=== PATIENT | male | born 1970 | race Caucasian/White ===

== ENCOUNTER 2018-07-15 18:18 | Emergency (ER) | payer BC ==
[2018-07-15] MEDS ORDERED: FENTANYL CITR 100 MCG/2 ML ONE (19:06)
[2018-07-15] MEDS ORDERED: ONDANSETRON 4 MG/2 ML VIAL ONE (19:06)
[2018-07-15 19:45] LABS: Absolute Lymphocytes (CBC) 2.4 K/uL (0.7-4.9); Absolute Monocytes 0.9 K/uL (0.1-1.3); Absolute Neutrophil 4.6 K/uL (1.8-8.0); Basophils % 0.8 % (0-1.3); Eosinophils % 2.3 % (0-4.4); Hematocrit 42.8 % (39.6-49.0); Lymphocytes % 29.4 % (15.3-44.8); MPV 7.6 fL (7.6-11.3); Monocytes % 10.6 % (3.3-12.3); RBC Red Blood Cell Count 4.49 M/uL (4.33-5.43)
[2018-07-15 19:54] LABS: Potassium 3.7 mmol/L (3.5-5.1)
[2018-07-15] MEDS ORDERED: NA CHLORIDE 0.9% 1,000 ML ONE (20:14)
--- NOTE | 2018-07-15 20:27 | RAD REPORT ---
EXAM DESCRIPTION: CT - Neck Angio - 07/15/2018 8:13 pm CLINICAL HISTORY: Left-sided neck pain, left-sided neck trauma TECHNIQUE: During dynamic enhancement using nonionic IV contrast, axial 2 mm thick images of the nec k were obtained. Sagittal and axial reconstruction images were generated and reviewed. All CT scans are performed using dose optimization technique as appropriate and may include automated exposure control or mA/KV adjustment according to patient size. FINDINGS: No aneurysm or vascular malformation identified. No carotid or vertebral dissection. No aortic arch or great vessel origin abnormality seen. Vertebral artery origins unremarkable as well . No stenosis, vasculitis or other significant carotid artery finding. No focal abnormality of either vertebral artery. Basilar artery is normal. No hematoma, significant contusion or mass in the neck soft tissues. Parotid glands, submandibular gl ands and skeletal musculature show no suspicious findings. No thyroid gland abnormality. No lymphaden opathy. IMPRESSION: Negative CT angio neck examination. No hematoma, mass or suspicious soft tissue finding.
--- NOTE | 2018-07-15 20:45 | EDPHYS ---
Physician Documentation [facility] Name: Reji Simons Age: 48 yrs Sex: Male : 1970 Arrival Date: 07/15/2018 Time: 18:22 Bed 6 Private MD: Philip Rolle ED Physician Gary Lambert HPI: 07/15 19:55 This 48 yrs old Male presents to ER via Ambulatory with complaints of Jaw jr8 Injury. 19:55 The patient or guardian complains of pain. The symptoms are located on the neck. Onset: jr8 The symptoms/episode began/occurred gradually, 4 day(s) ago. Context: The problem was sustained at home. Associated signs and symptoms: The patient has no apparent associated signs or symptoms. The pain does not radiate. Modifying factors: The symptoms are alleviated by nothing. the symptoms are aggravated by movement, pressure. Severity of symptoms: At their worst the symptoms were moderate, in the emergency department the symptoms are unchanged. The patient has not experienced similar symptoms in the past. The patient has not recently seen a physician. Patient stated that he was moving a metal bed and accidently hit himself in left jaw. Patient stated that about 2 days after started to have swelling to anterior neck line near jaw. Historical: - Allergies: 18:26 No Known Allergies; aj1 - Home Meds: 18:26 None [Active]; aj1 - PMHx: 18:26 None; aj1 - PSHx: 18:26 Cholecystectomy; aj1 - Immunization history:: Adult Immunizations up to date. - Social history:: Smoking status: Patient uses tobacco products, smokes one-half pack cigarettes per day. - Ebola Screening: : Patient denies travel to an Ebola-affected area in the 21 days before illness onset. ROS: 19:55 Eyes: Negative for injury, pain, redness, and discharge, ENT: Negative for injury, jr8 pain, and discharge, Cardiovascular: Negative for chest pain, palpitations, and edema, Respiratory: Negative for shortness of breath, cough, wheezing, and pleuritic chest pain, Abdomen/GI: Negative for abdominal pain, nausea, vomiting, diarrhea, and constipation, Back: Negative for injury and pain, MS/Extremity: Negative for injury and deformity, Skin: Negative for injury, rash, and discoloration, Neuro: Negative for headache, weakness, numbness, tingling, and seizure. 19:55 Neck: Positive for pain with movement, pain at rest, tenderness, of the neck. Exam: 20:41 Head/Face: Normocephalic, atraumatic. Eyes: Pupils equal round and reactive to light, jr8 extra-ocular motions intact. Lids and lashes normal. Conjunctiva and sclera are non-icteric and not injected. Cornea within normal limits. Periorbital areas with no swelling, redness, or edema. ENT: Nares patent. No nasal discharge, no septal abnormalities noted. Tympanic membranes are normal and external auditory canals are clear. Oropharynx with no redness, swelling, or masses, exudates, or evidence of obstruction, uvula midline. Mucous membranes moist. Cardiovascular: Regular rate and rhythm with a normal S1 and S2. No gallops, murmurs, or rubs. Normal PMI, no JVD. No pulse deficits. Respiratory: Lungs have equal breath sounds bilaterally, clear to auscultation and percussion. No rales, rhonchi or wheezes noted. No increased work of breathing, no retractions or nasal flaring. Abdomen/GI: Soft, non-tender, with normal bowel sounds. No distension or tympany. No guarding or rebound. No evidence of tenderness throughout. Back: No spinal tenderness. No costovertebral tenderness. Full range of motion. Skin: Warm, dry with normal turgor. Normal color with no rashes, no lesions, and no evidence of cellulitis. MS/ Extremity: Pulses equal, no cyanosis. Neurovascular intact. Full, normal range of motion. Neuro: Awake and alert, GCS 15, oriented to person, place, time, and situation. Cranial nerves II-XII grossly intact. Motor strength 5/5 in all extremities. Sensory grossly intact. Cerebellar exam normal. Normal gait. 20:41 Neck: External neck: swelling, that is mild, of the left anterior aspect of neck, tenderness, that is moderate, of the left anterior aspect of neck, C-spine: appears grossly normal, Thyroid: appears normal, Trachea: is midline with no obvious abnormalities, ROM/movement: is normal, is supple, Lymph nodes: no appreciated lymphadenopathy. Vital Signs: 18:26 BP 124 / 83; Pulse 70; Resp 18; Temp 98.2; Pulse Ox 96% on R/A; Weight 83.91 kg (R); aj1 Height 5 ft. 9 in. (175.26 cm) (R); Pain 8/10; 19:20 BP 134 / 89; Pulse 60; Resp 17 S; Temp 97.9(O); Pulse Ox 96% on R/A; cc3 20:20 BP 132 / 87; Pulse 59; Resp 16 S; Temp 98.1(O); Pulse Ox 95% on R/A; cc3 21:06 BP 134 / 84; Pulse 61; Resp 16 S; Temp 98.1(O); Pulse Ox 96% on R/A; cc3 18:26 Body Mass Index 27.32 (83.91 kg, 175.26 cm) aj1 MDM: 18:35 Patient medically screened. jr8 20:41 Data reviewed: vital signs, nurses notes, lab test result(s), radiologic studies, CT jr8 scan. Data interpreted: Pulse oximetry: on room air is 96 %. Interpretation: normal. Counseling: I had a detailed discussion with the patient and/or guardian regarding: the historical points, exam findings, and any diagnostic results supporting the discharge/admit diagnosis, lab results, radiology results, the need for outpatient follow up, a family practitioner, to return to the emergency department if symptoms worsen or persist or if there are any questions or concerns that arise at home. ED course: No CT finding to suggest immediate vascular injury. No sign to suggest abscess or cellulitis. Based on physical exam and CT most likely hematoma. Will have him f/u in next couple of days. To observe it for now and will give pain medicine. To utilize ice to area. If worse to come back. Patient and good with this plan . 07/15 18:43 Order name: CBC with Diff; Complete Time: 19:54 jr8 07/15 18:43 Order name: Basic Metabolic Panel; Complete Time: 19:54 jr8 07/15 18:43 Order name: CT Neck Angio; Complete Time: 20:31 jr8 07/15 18:43 Order name: IV; Complete Time: 19:01 jr8 Administered Medications: 18:53 Drug: Zofran 4 mg Route: IVP; Site: right antecubital; tw2 19:20 Follow up: Response: No adverse reaction; Nausea is decreased cc3 18:55 Drug: fentaNYL (PF) 50 mcg Route: IVP; Site: right antecubital; tw2 19:20 Follow up: Response: No adverse reaction; Pain is decreased cc3 20:00 Drug: NS 0.9% 1000 ml Route: IV; Rate: 1000 ml; Site: right antecubital; cc3 21:00 Follow up: Response: No adverse reaction; IV Status: Completed infusion; IV Intake: cc3 1000ml 20:52 Drug: morphine 4 mg Route: IVP; Site: right antecubital; cc3 21:15 Follow up: Response: No adverse reaction; Pain is decreased cc3 Disposition: 07/15/18 20:44 Discharged to Home. Impression: Hematoma neck . - Condition is Stable. - Discharge Instructions: Hematoma. - Prescriptions for Tylenol- Codeine #3 300-30 mg Oral Tablet - take 2 tablets by ORAL route every 6 hours As needed; 20 tablet. - Medication Reconciliation Form, Thank You Letter, Antibiotic Education, Prescription Opioid Use form. - Follow up: Philip Rolle MD; When: 2 - 3 days; Reason: Recheck today's complaints, Continuance of care, Re-evaluation by your physician. - Problem is new. - Symptoms have improved. Signatures: Dispatcher [employer] EDMS Julianna Sotelo RN RN aj1 David Dunaway PA PA jr8 Magi Andrews RN RN tw2 Lorena Radford cc3 Corrections: (The following items were deleted from the chart) 21:17 20:44 07/15/2018 20:44 Discharged to Home. Impression: Hematoma neck . Condition is cc3 Stable. Forms are Medication Reconciliation Form, Thank You Letter, Antibiotic Education, Prescription Opioid Use. Follow up: Philip Rolle; When: 2 - 3 days; Reason: Recheck today's complaints, Continuance of care, Re-evaluation by your physician. Problem is new. Symptoms have improved. jr8
--- NOTE | 2018-07-15 20:45 | ER ---
Nurse's Notes [facility] Name: Reji Simons Age: 48 yrs Sex: Male : 1970 Arrival Date: 07/15/2018 Time: 18:22 Bed 6 Private MD: Philip Rolle Diagnosis: Hematoma neck Presentation: 07/15 18:25 Presenting complaint: Patient states: "Saturday I was lifting a metal bed and it spun aj1 on me and hit me in the jaw bone and now its all swollen and hurting" reports pain to left jaw. Transition of care: patient was not received from another setting of care. Onset of symptoms was June 2018. Risk Assessment: Do you want to hurt yourself or someone else? Patient reports no desire to harm self or others. Initial Sepsis Screen: Does the patient meet any 2 criteria? No. Patient's initial sepsis screen is negative. Does the patient have a suspected source of infection? No. Patient's initial sepsis screen is negative. Care prior to arrival: None. 18:25 Method Of Arrival: Ambulatory aj1 18:25 Acuity: KARYNA 3 aa5 Triage Assessment: 18:26 General: Appears in no apparent distress. comfortable, Behavior is calm, cooperative, aj1 appropriate for age. Pain: Complains of pain in left jaw Pain currently is 8 out of 10 on a pain scale. Neuro: Level of Consciousness is awake, alert, obeys commands, Oriented to person, place, time, situation. Cardiovascular: Patient's skin is warm and dry. Respiratory: Airway is patent Respiratory effort is even, unlabored, Respiratory pattern is regular, symmetrical. Historical: - Allergies: 18:26 No Known Allergies; aj1 - Home Meds: 18:26 None [Active]; aj1 - PMHx: 18:26 None; aj1 - PSHx: 18:26 Cholecystectomy; aj1 - Immunization history:: Adult Immunizations up to date. - Social history:: Smoking status: Patient uses tobacco products, smokes one-half pack cigarettes per day. - Ebola Screening: : Patient denies travel to an Ebola-affected area in the 21 days before illness onset. Screenin:39 Abuse screen: Denies threats or abuse. Denies injuries from another. Nutritional aj1 screening: No deficits noted. Tuberculosis screening: No symptoms or risk factors identified. 18:50 Fall Risk None identified. tw2 Assessment: 18:39 General: Appears in no apparent distress. comfortable, Behavior is calm, cooperative, aj1 appropriate for age. Pain: Complains of pain in left jaw Pain does not radiate. Pain currently is 8 out of 10 on a pain scale. Neuro: Level of Consciousness is awake, alert, obeys commands, Oriented to person, place, time, situation. Cardiovascular: Patient's skin is warm and dry. Respiratory: Airway is patent Respiratory effort is even, unlabored, Respiratory pattern is regular, symmetrical. GI: No signs and/or symptoms were reported involving the gastrointestinal system. : No signs and/or symptoms were reported regarding the genitourinary system. EENT: No signs and/or symptoms were reported regarding the EENT system. Derm: No signs and/or symptoms reported regarding the dermatologic system. Skin is pink, warm \\T\\ dry. normal. Musculoskeletal: No signs and/or symptoms reported regarding the musculoskeletal system. Circulation, motion, and sensation intact. 19:15 Reassessment: Patient appears in no apparent distress at this time. Patient and/or cc3 family updated on plan of care and expected duration. Pain level reassessed. Patient is alert, oriented x 3, equal unlabored respirations, skin warm/dry/pink. Received this male patient from morning shift RN Mark as a case of jaw injury. With IV cannula gauge 20 at the right ACV saline locked. Patient denies pain at this time. 19:35 Reassessment: Blood works recollected by medical instrument technician Gamal. cc3 20:20 Reassessment: Patient appears in no apparent distress at this time. Patient and/or cc3 family updated on plan of care and expected duration. Pain level reassessed. Patient is alert, oriented x 3, equal unlabored respirations, skin warm/dry/pink. Patient came back from CT scan department, awaiting result. 21:15 Reassessment: Patient appears in no apparent distress at this time. Patient and/or cc3 family updated on plan of care and expected duration. Pain level reassessed. Patient is alert, oriented x 3, equal unlabored respirations, skin warm/dry/pink. RENE Dunaway discharged the patient home with prescription given. IV cannula removed and patient left ER vitally stable and ambulatory with his . Patient denies pain at this time. Patient states feeling better. Patient states symptoms have improved. Vital Signs: 18:26 BP 124 / 83; Pulse 70; Resp 18; Temp 98.2; Pulse Ox 96% on R/A; Weight 83.91 kg (R); aj1 Height 5 ft. 9 in. (175.26 cm) (R); Pain 8/10; 19:20 BP 134 / 89; Pulse 60; Resp 17 S; Temp 97.9(O); Pulse Ox 96% on R/A; cc3 20:20 BP 132 / 87; Pulse 59; Resp 16 S; Temp 98.1(O); Pulse Ox 95% on R/A; cc3 21:06 BP 134 / 84; Pulse 61; Resp 16 S; Temp 98.1(O); Pulse Ox 96% on R/A; cc3 18:26 Body Mass Index 27.32 (83.91 kg, 175.26 cm) aj1 ED Course: 18:22 Patient arrived in ED. mr 18:22 Philip Rolle MD is Private Physician. mr 18:25 Triage completed. aj1 18:26 Arm band placed on Patient placed in an exam room. aj1 18:33 David Dunaway PA is PHCP. jr8 18:33 Gary Lambert MD is Attending Physician. jr8 18:38 Julianna Sotelo, MARIELENA is Primary Nurse. aj1 18:39 Patient has correct armband on for positive identification. Bed in low position. Call aj1 light in reach. Side rails up X 1. 18:39 No provider procedures requiring assistance completed. aj1 18:40 Inserted saline lock: 20 gauge in right antecubital area, using aseptic technique. sg Blood collected. 18:44 Radiology exam delayed due to lab results not completed at this time. (BUN/Creatinine). vm2 18:55 Initial lab(s) drawn, by me, sent to lab. First set of blood cultures drawn by me and sg held at this time. 20:13 CT Neck Angio In Process Unspecified. EDMS 20:44 Philip Rolle MD is Referral Physician. jr8 21:15 IV discontinued, intact, bleeding controlled, No redness/swelling at site. Pressure cc3 dressing applied. Administered Medications: 18:53 Drug: Zofran 4 mg Route: IVP; Site: right antecubital; tw2 19:20 Follow up: Response: No adverse reaction; Nausea is decreased cc3 18:55 Drug: fentaNYL (PF) 50 mcg Route: IVP; Site: right antecubital; tw2 19:20 Follow up: Response: No adverse reaction; Pain is decreased cc3 20:00 Drug: NS 0.9% 1000 ml Route: IV; Rate: 1000 ml; Site: right antecubital; cc3 21:00 Follow up: Response: No adverse reaction; IV Status: Completed infusion; IV Intake: cc3 1000ml 20:52 Drug: morphine 4 mg Route: IVP; Site: right antecubital; cc3 21:15 Follow up: Response: No adverse reaction; Pain is decreased cc3 Intake: 21:00 IV: 1000ml; Total: 1000ml. cc3 Outcome: 20:44 Discharge ordered by . jrSharon 21:15 Discharged to home ambulatory, with family. cc3 21:15 Condition: stable cc3 21:15 Discharge instructions given to patient, family, Instructed on discharge instructions, follow up and referral plans. medication usage, Demonstrated understanding of instructions, follow-up care, medications, Prescriptions given X 1. 21:17 Patient left the ED. cc3 Signatures: Dispatcher [employer] EDMS Julianna Sotelo RN RN noe1 Mark Tolentino RN Pili Puckett Lio, Blessing RN RN aa5 David Dunaway PA PA jr8 Wise, Tara, RN RN tw2 Ofelia Soliman Charlene cc3 Corrections: (The following items were deleted from the chart) 18:49 18:25 Acuity: KARYNA 4 aj1 aa5
[2018-07-15] MEDS ORDERED: MORPHINE 4 MG/ML SYR ONE (21:07)
[2018-07-15 21:50] VITALS: O2SAT 96
[2018-07-15 21:53] VITALS: BP 134/84; TEMP 98.1
== END 2018-07-15 21:17 | disposition home or self-care (01) ==
LOC: ER 18:18
DX: S10.93XA Contusion of unspecified part of neck, initial encounter (principal); W20.8XXA Other cause of strike by thrown, projected or falling object, initial encounter; Y93.89 Activity, other specified; Y92.9 Unspecified place or not applicable; F17.210 Nicotine dependence, cigarettes, uncomplicated
CPT/HCPCS: 36415; 70498; 80048; 85025; 96361; 96374; 96375; 99284; J2405; J3010; J7030; Q9967

== ENCOUNTER → 2023-05-12 | Emergency (ER) | payer SELFPAY ==
[~2023-05-12] MED LIST: FAMOTIDINE 20 MG/2 ML VIAL IV ONE; KETOROLAC 30 MG/ML INJ ONE; MORPHINE 4 MG/ML SYR ONE; NA CHLORIDE 0.9% 1,000 ML ONE; ONDANSETRON 4 MG/2 ML VIAL ONE
[2023-05-12 06:49] LABS: Specific Gravity 1.029 (1.005-1.030); Sqamous Epithelial <5 /HPF (None Seen); Urine Bacteria <20 /HPF (<20); Urine Bilirubin NEGATIVE (Negative); Urine Blood Negative (Negative); Urine Clarity Clear (Clear); Urine Color Yellow (Yellow); Urine Culture Reflex Order NOT NEEDED; Urine Glucose NEGATIVE (Negative); Urine Ketones NEGATIVE (Negative); Urine Microscopic Reflex YN ORDER UMIC; Urine Mucus Slight /HPF (None Seen); Urine Nitrite NEGATIVE (Negative); Urine Protein 1+ (Negative); Urine Urobilinogen Normal (Normal); Urine WBC <5 /HPF (<5); Urine pH 5.5 (5.0-7.0)
[2023-05-12 07:14] LABS: Absolute Lymphocytes (CBC) 1.4 K/uL (0.7-4.9); Absolute Monocytes 0.7 K/uL (0.1-1.3); Absolute Neutrophil 3.4 K/uL (1.8-8.0); Basophils % 0.7 % (0-1.3); Eosinophils % 0.8 % (0-4.4); Hematocrit 48.2 % (39.6-49.0); Hemoglobin 16.6 g/dL (13.6-17.9); Lymphocytes % 25.5 % (15.3-44.8); MCH 32.5 pg (27.0-35.0); MCHC 34.5 g/dL (32.0-36.0); MCV 94.2 fL (80-100); MPV 7.5 fL (7.6-11.3); Monocytes % 12.5 % (3.3-12.3); Neutrophils % 60.5 % (41.7-73.7); Nucleated Red Blood Cells % 0.2 % (0-0); Platelets 192 thou/uL (152-406); RBC Red Blood Cell Count 5.12 M/uL (4.33-5.43); Red Cell Distribution Width 13.5 % (12.1-15.2)
[2023-05-12 08:52] LABS: Albumin 2.8 g/dL (3.4-5.0); Albumin/Globulin Ratio 0.9 (1.1-1.8); Bilirubin Total 0.3 mg/dL (0.2-1.0); Protein, Total 5.8 g/dL (6.4-8.2)
--- NOTE | 2023-05-12 09:45 | RAD REPORT ---
EXAM DESCRIPTION: CT - Abdomen Pelvis W Contrast - 05/12/2023 8:47 am CLINICAL HISTORY: ABD PAIN COMPARISON: CT ABD PELVIS W CONTRAST dated 09/02/2014; CT ABD PELVIS W CONTRAST dated 07/18/2014; CT AB D PELVIS W CONTRAST dated 06/21/2014; CT ABD PELVIS W CONTRAST dated 05/27/2014 TECHNIQUE: Thin cut axial CT imaging of the abdomen and pelvis was performed following intravenous a dministration of 100 mL Isovue 300. Multiplanar reformats were generated and reviewed. All CT scans are performed using dose optimization technique as appropriate and may include automated exposure control or mA/KV adjustment according to patient size. FINDINGS: Confluent nodules in the left lower lobe extending to the pleura largest measuring 9 mm. M ore superiorly, calcified granulomas are seen in the subpleural lung. The liver, spleen, adrenal glands, and pancreas show no suspicious findings. Gallbladder and biliary tree are also without suspicious finding. Symmetric renal function is seen with no hydronephrosis or suspicious renal mass. No dilated bowel loops or bowel wall thickening. Nonspecific segmental fluid filling within nondisten ded small bowel, with short-segment air-fluid levels. Appendix is unremarkable. No free air, free flu id or inflammatory stranding. No hernia, mass or bulky lymphadenopathy. The urinary bladder is withou t significant finding. No suspicious bony findings. IMPRESSION: Fluid filling within nondistended small bowel loops throughout the abdomen without a foc al transition point. Findings suggest enteritis or diarrheal state. No other acute intra-abdominal process. Incidentally noted confluent left lower lobe nodules, nonspecific but could be of infectious or infla mmatory nature. A follow-up CT of the chest is recommended in 1-3 months to re-evaluate the findings.
--- NOTE | 2023-05-12 09:59 | EDPHYS ---
[facility] Documentation [facility] Name: Reji Simons Age: 53 yrs Sex: Male : 1970 Arrival Date: 05/12/2023 Time: 06:14 Bed 6 Private MD: ED Physician Bharat De La Torre HPI: 05/11 06:19 This 53 yrs old Male presents to ER via Unassigned with complaints of sp4 Nausea/Vomiting. 07:01 53-year-old male with history of prior clostridial colitis presents with acute mid sp4 abdominal pain associated with 4 episodes of vomiting. Patient also reported some diarrhea. Denied fever. Denied bloody emesis or bloody diarrhea. Historical: - Allergies: 06:46 No Known Allergies; cm10 - PMHx: 06:46 C.Diff; colitis; cm10 - PSHx: 06:47 Cholecystectomy; cm10 - Immunization history:: Adult Immunizations up to date. - Social history:: Smoking status: Patient reports the use of cigarette tobacco products, smokes one pack cigarettes per day. - Family history:: not pertinent. ROS: 07:01 Constitutional: Negative for fever, chills, and weight loss, positive abdominal pain sp4 and vomiting 07:01 All other systems are negative, Exam: 07:01 Constitutional: This is a well developed, well nourished patient who is awake, alert, sp4 and in no acute distress. Head/Face: Normocephalic, atraumatic. Eyes: Pupils equal round and reactive to light, extra-ocular motions intact. Lids and lashes normal. Conjunctiva and sclera are not injected. Cornea within normal limits. Periorbital areas with no swelling, redness, or edema. ENT: Nares patent. No nasal discharge, no septal abnormalities noted. Tympanic membranes are normal and external auditory canals are clear. Oropharynx with no redness, swelling, or masses, exudates, or evidence of obstruction, uvula midline. Mucous membranes moist. Neck: Trachea midline, no thyromegaly or masses palpated, and no cervical lymphadenopathy. Supple, full range of motion without nuchal rigidity, or vertebral point tenderness. Chest/axilla: Normal chest wall appearance and motion. Nontender with no deformity. No lesions are appreciated. Cardiovascular: Regular rate and rhythm with a normal S1 and S2. No gallops, murmurs, or rubs. Normal PMI, no JVD. No pulse deficits. Respiratory: Lungs have equal breath sounds bilaterally, clear to auscultation and percussion. No rales, rhonchi or wheezes noted. No increased work of breathing, no retractions or nasal flaring. Abdomen/GI: Soft, with normal bowel sounds. No distension or tympany. No guarding or rebound. No evidence of tenderness throughout. Back: No spinal tenderness. No costovertebral tenderness. Skin: Warm, dry with normal turgor. Normal color with no rashes, no lesions, and no evidence of cellulitis. MS/ Extremity: Pulses equal, no cyanosis. Neurovascular intact. Full, normal range of motion. Neuro: Awake and alert, GCS 15, oriented to person, place, time, and situation. Cranial nerves II-XII grossly intact. Motor strength 5/5 in all extremities. Sensory grossly intact. Psych: Awake, alert, with orientation to person, place and time. Behavior, mood, and affect are within normal limits Vital Signs: 06:45 BP 130 / 90; Pulse 81; Resp 16; Temp 98; Pulse Ox 97% on R/A; Weight 83.91 kg; Height 5 cm10 ft. 9 in. ; Pain 6/10; 07:38 BP 138 / 98; Pulse 72; Resp 18; Temp 97.9(O); Pulse Ox 99% on R/A; rs5 09:21 BP 124 / 87; Pulse 79; Resp 18; Pulse Ox 99% on R/A; rs5 10:15 BP 127 / 90; Pulse 82; Resp 18; Pulse Ox 99% on R/A; rs5 06:45 Body Mass Index 27.32 (83.91 kg, 175.26 cm) cm10 06:45 Pain Scale: Adult cm10 MDM: 06:21 Patient medically screened. sp4 07:03 Differential diagnosis: Nonspecific abd pain, gastritis, pancreatitis, appendicitis, sp4 diverticulitis, viral gastroenteritis, gastroenteritis. Data reviewed: vital signs, nurses notes, old medical records, lab test result(s), EKG, radiologic studies, CT scan. Consideration of Admission/Observation Escalation of care including admission/observation considered. Transition of care: After a detail discussion of the patient's case, care is transferred to Radha Mustafa MD. 05/11 06:21 Order name: CBC with Diff; Complete Time: 08:53 sp4 05/11 06:21 Order name: CMP; Complete Time: 08:53 sp4 05/11 06:21 Order name: Lipase; Complete Time: 08:53 sp4 05/11 06:21 Order name: Urinalysis w/ reflexes; Complete Time: 08:53 sp4 05/11 06:48 Order name: CT Abd/Pelvis - IV Contrast Only; Complete Time: 09:48 sp4 05/11 06:21 Order name: IV Saline Lock; Complete Time: 07:35 sp4 05/11 06:21 Order name: Labs collected and sent; Complete Time: 06:59 sp4 05/11 07:19 Order name: Labs - recollect needed: green top only; Complete Time: 07:29 sp Administered Medications: 07:32 Drug: NS 0.9% IV 1000 ml IV at 1 bolus Per protocol; 1000 mL bolus Route: IV; Rate: 1 rs5 bolus; Site: left forearm; 08:01 Follow up: Response: No adverse reaction rs5 07:32 Drug: morphine IVP or IV 4 mg IVP once over 4 mins Route: IVP; Infused Over: 4 mins; rs5 Site: left forearm; 08:46 Follow up: Response: No adverse reaction bp 07:32 Drug: Ketorolac IVP 30 mg IVP once Route: IVP; Site: left forearm; rs5 08:46 Follow up: Response: No adverse reaction bp 07:32 Drug: Ondansetron IVP 4 mg IVP once; over 2 minutes Route: IVP; Site: left forearm; rs5 08:46 Follow up: Response: No adverse reaction bp 07:32 Drug: Famotidine IVP 20 mg IVP once; dilute with 10 mL 0.9% NaCl; give over 2 minutes rs5 Route: IVP; Site: left forearm; 08:45 Follow up: Response: No adverse reaction bp 10:00 Drug: morphine IVP or IV 4 mg IVP once over 4 mins Route: IVP; Infused Over: 4 mins; rs5 Site: left antecubital; 10:15 Follow up: Response: No adverse reaction; Pain is decreased rs5 10:00 Drug: Ondansetron IVP 4 mg IVP once; over 2 minutes Route: IVP; Site: left antecubital; rs5 10:15 Follow up: Response: No adverse reaction rs5 Disposition Summary: 05/12/23 09:58 Discharge Ordered Notes: Location: Home cp3 Condition: Stable cp3 Diagnosis - COLITIS cp3 - GENERALIZED ABOMDINAL PAIN cp3 Followup: cp3 - With: Jorje Gaspar MD - When: As needed - Reason: Continuance of care Discharge Instructions: - Discharge Summary Sheet cp3 Forms: - Medication Reconciliation Form cp3 - Thank You Letter cp3 - Antibiotic Education cp3 - Prescription Opioid Use cp3 - Patient Portal Instructions cp3 - Leadership Thank You Letter cp3 Prescriptions: - BENTYL 40MG. 1 TAB PO QID PRN ABDOMINAL CRAMPS - take 1 tablet ORAL route 4 times per day As needed; 30 tablet; Refills: 0, cp3 Product Selection Permitted - Carafate 1 gram Oral Tablet - take 1 tablet ORAL route 4 times per day take on an empty stomach, beginning on cp3 waking and last dose at bedtime; 100 tablet; Refills: 0, Product Selection Permitted - Flagyl 500 mg Oral Tablet - take 1 tablet ORAL route every 8 hours for 10 days; 30 tablet; Refills: 0, cp3 Product Selection Permitted - Ultram 50 mg Oral Tablet - take 1 tablet ORAL route every 6 hours As needed; 12 tablet; Refills: 0, cp3 Product Selection Permitted - promethazine 25 mg Oral Tablet - take 1 tablet ORAL route every 6 hours As needed; 20 tablet; Refills: 0, cp3 Product Selection Permitted Signatures: Dispatcher [employer] Radha Sánchez MD MD cp3 Flor Cross Ricky, RN RN rs5 Bharat De La Torre MD MD sp4 Nasra Martinez, RN RN cm10 Keaton Marquez RN bp
--- NOTE | 2023-05-12 09:59 | ER ---
Nurse's Notes [facility] [place] Name: Reji Simons Age: 53 yrs Sex: Male : 1970 Arrival Date: 05/12/2023 Time: 06:14 Bed 6 Private MD: Diagnosis: COLITIS;GENERALIZED ABOMDINAL PAIN Presentation: 05/11 06:45 Chief complaint: Patient states: Upper abdominal pain onset yesterday at 1300. Pt cm10 reports 4 episodes of vomiting, 1 episode of diarrhea. Coronavirus screen: Vaccine status: Patient reports being unvaccinated. Client denies travel out of the [place] in the last 14 days. At this time, the client does not indicate any symptoms associated with coronavirus-19. Ebola Screen: Patient denies travel to an Ebola-affected area in the 21 days before illness onset. No symptoms or risks identified at this time. Initial Sepsis Screen: Does the patient meet any 2 criteria? No. Patient's initial sepsis screen is negative. Does the patient have a suspected source of infection? No. Patient's initial sepsis screen is negative. Risk Assessment: Do you want to hurt yourself or someone else? Patient reports no desire to harm self or others. Onset of symptoms was May 11, 2023. 06:45 Method Of Arrival: Ambulatory cm10 06:45 Acuity: KARYNA 3 cm10 Triage Assessment: 06:47 General: Appears in no apparent distress. comfortable, Behavior is calm, cooperative. cm10 Pain: Complains of pain in abdomen Pain currently is 6 out of 10 on a pain scale. Neuro: No deficits noted. Level of Consciousness is awake, alert, obeys commands, Oriented to person, place, time, situation. Respiratory: No deficits noted. Airway is patent Respiratory effort is even, unlabored, Respiratory pattern is regular, symmetrical. GI: Reports upper abdominal pain, diarrhea, vomiting. Historical: - Allergies: 06:46 No Known Allergies; cm10 - PMHx: 06:46 C.Diff; colitis; cm10 - PSHx: 06:47 Cholecystectomy; cm10 - Immunization history:: Adult Immunizations up to date. - Social history:: Smoking status: Patient reports the use of cigarette tobacco products, smokes one pack cigarettes per day. - Family history:: not pertinent. Screenin:[facility] ED Fall Risk Assessment (Adult) History of falling in the last 3 months, pf1 including since admission No falls in past 3 months (0 pts) Confusion or Disorientation No (0 pts) Intoxicated or Sedated No (0 pts) Impaired Gait No (0 pts) Mobility Assist Device Used No (0 pt) Altered Elimination No (0 pt) Score/Fall Risk Level 0 - 2 = Low Risk Oriented to surroundings, Maintained a safe environment, Educated pt \T\ family on fall prevention, incl call for assistance when getting out of bed, Assessed \T\ reinforced patient's understanding of fall precautions, Provided non-skid footwear, Hourly rounding (assess needs \T\ fall precautionary measures) done, Used ambulatory aids as needed (educated on \T\ assisted with), Used gait belt as appropriate. Abuse screen: Denies threats or abuse. Nutritional screening: No deficits noted. Tuberculosis screening: No symptoms or risk factors identified. Assessment: 07:02 General: Appears in no apparent distress. uncomfortable, Behavior is calm, cooperative. rs5 Pain: Complains of pain in upper abdomen Pain currently is 8 out of 10 on a pain scale. Quality of pain is described as aching, Is continuous. 07:02 Neuro: Level of Consciousness is awake, alert, obeys commands, Oriented to person, rs5 place, time, situation. Cardiovascular: Patient's skin is warm and dry. Rhythm is regular. Respiratory: Airway is patent Respiratory effort is even, unlabored, Respiratory pattern is regular, symmetrical. GI: Abdomen is flat, non-distended, Abd is soft and non tender X 4 quads. GI: Reports nausea, vomiting. : No signs and/or symptoms were reported regarding the genitourinary system. EENT: No signs and/or symptoms were reported regarding the EENT system. Derm: Skin is intact, Skin is pink, warm \T\ dry. Musculoskeletal: Circulation, motion, and sensation intact. Range of motion: intact in all extremities. 07:45 Reassessment: PER LAB, SPECIMEN HEMOLYZED. PHLEBOTOMY CONTACTED. bp 08:05 Reassessment: Patient and/or family updated on plan of care and expected duration. Pain rs5 level reassessed. Patient is alert, oriented x 3, equal unlabored respirations, skin warm/dry/pink. Patient denies pain at this time. Patient states feeling better. Patient states symptoms have improved. 08:05 GI: Patient currently denies nausea. rs5 08:12 Reassessment: PHLEBOTOMY AT B/S FOR REDRAW. bp 09:20 Reassessment: No changes from previously documented assessment. rs5 09:55 Pain: Complains of pain in abdomen Pain does not radiate. Pain currently is 8 out of 10 rs5 on a pain scale. Quality of pain is described as aching, Is continuous. 09:55 GI: Reports nausea. rs5 09:56 Reassessment: Provider notified pt is experiencing nausea and pain. rs5 10:15 Reassessment: Patient and/or family updated on plan of care and expected duration. Pain rs5 level reassessed. Patient is alert, oriented x 3, equal unlabored respirations, skin warm/dry/pink. Patient denies pain at this time. Patient states feeling better. Vital Signs: 06:45 BP 130 / 90; Pulse 81; Resp 16; Temp 98; Pulse Ox 97% on R/A; Weight 83.91 kg; Height 5 cm10 ft. 9 in. ; Pain 6/10; 07:38 BP 138 / 98; Pulse 72; Resp 18; Temp 97.9(O); Pulse Ox 99% on R/A; rs5 09:21 BP 124 / 87; Pulse 79; Resp 18; Pulse Ox 99% on R/A; rs5 10:15 BP 127 / 90; Pulse 82; Resp 18; Pulse Ox 99% on R/A; rs5 06:45 Body Mass Index 27.32 (83.91 kg, 175.26 cm) cm10 06:45 Pain Scale: Adult cm10 ED Course: 06:17 Patient arrived in ED. mr 06:19 Bharat De La Torre MD is Attending Physician. sp4 06:30 Urine collected: clean catch specimen, clear. pf1 06:38 Urinalysis w/ reflexes Sent. pf1 06:38 No provider procedures requiring assistance completed. pf1 06:38 Patient has correct armband on for positive identification. Bed in low position. Call pf1 light in reach. Door closed. Noise minimized. Warm blanket given. 06:46 Triage completed. cm10 06:59 CBC with Diff Sent. cm10 06:59 CMP Sent. cm10 06:59 Lipase Sent. cm10 06:59 Missed attempt(s): 22 gauge in right forearm. Bleeding controlled, band aid applied, cm10 catheter tip intact. 07:09 Fausto Brunson, MARIELENA is Primary Nurse. rs5 07:30 Inserted saline lock: 22 gauge in left forearm, using aseptic technique. Blood bp collected. 08:45 CT Abd/Pelvis - IV Contrast Only Sent. bp 08:48 CT Abd/Pelvis - IV Contrast Only In Process Unspecified. EDMS 09:58 Jorje Gaspar MD is Referral Physician. cp3 10:15 IV discontinued, intact, bleeding controlled, No redness/swelling at site. Pressure rs5 dressing applied. Administered Medications: 07:32 Drug: NS 0.9% IV 1000 ml IV at 1 bolus Per protocol; 1000 mL bolus Route: IV; Rate: 1 rs5 bolus; Site: left forearm; 08:01 Follow up: Response: No adverse reaction rs5 07:32 Drug: morphine IVP or IV 4 mg IVP once over 4 mins Route: IVP; Infused Over: 4 mins; rs5 Site: left forearm; 08:46 Follow up: Response: No adverse reaction bp 07:32 Drug: Ketorolac IVP 30 mg IVP once Route: IVP; Site: left forearm; rs5 08:46 Follow up: Response: No adverse reaction bp 07:32 Drug: Ondansetron IVP 4 mg IVP once; over 2 minutes Route: IVP; Site: left forearm; rs5 08:46 Follow up: Response: No adverse reaction bp 07:32 Drug: Famotidine IVP 20 mg IVP once; dilute with 10 mL 0.9% NaCl; give over 2 minutes rs5 Route: IVP; Site: left forearm; 08:45 Follow up: Response: No adverse reaction bp 10:00 Drug: morphine IVP or IV 4 mg IVP once over 4 mins Route: IVP; Infused Over: 4 mins; rs5 Site: left antecubital; 10:15 Follow up: Response: No adverse reaction; Pain is decreased rs5 10:00 Drug: Ondansetron IVP 4 mg IVP once; over 2 minutes Route: IVP; Site: left antecubital; rs5 10:15 Follow up: Response: No adverse reaction rs5 Medication: 07:38 VIS not applicable for this client. rs5 Outcome: 09:58 Discharge ordered by . cp3 10:15 Discharged to home ambulatory, rs5 10:15 Condition: stable 10:15 Discharge instructions given to patient, family, Instructed on discharge instructions, follow up and referral plans. medication usage, Demonstrated understanding of instructions, follow-up care, medications, Prescriptions given X 4, 10:20 Patient left the ED. rs5 Signatures: Dispatcher [employer] EDRadha Blake MD MD cp3 Gordon, Pili, Reg Reg mr Keaton Marquez, RN RN bp Sisi Mukherjee RN RN pf1 Fausto Brunson RN RN rs5 Bharat De La Torre MD MD sp4 Nasra Martinez RN RN cm10 Corrections: (The following items were deleted from the chart) 07:00 06:59 Missed attempt(s): 22 gauge in right forearm. cm10 cm10 10:34 10:34 Patient left the ED. rs5 rs5
[2023-05-12 11:03] VITALS: BP 124/87; TEMP 97.9; O2SAT 99
== END ==
LOC: ER 06:14
DX: K52.9 Noninfective gastroenteritis and colitis, unspecified (principal)
CPT/HCPCS: 36415; 74177; 80053; 81001; 82565; 83690; 85025; 99284; J2405; J7030; Q9967